=== PATIENT | male | born 1990 | race Caucasian/White ===

== ENCOUNTER 2023-08-26 03:09 | Inpatient (IN) | payer MEDICAID ==
[~2023-08-26] VITALS: Ht 185.4 cm; Wt 138.3 kg
[2023-08-26] VITALS (17 sets, daily range): BP systolic 92–135; PULSE 126–143; RESP 13–32; TEMP 97.7–99.2; O2SAT 92–98
[2023-08-26] MEDS ORDERED: cefTRIAXone 1 GM VIAL ONE (03:43)
[2023-08-26] MEDS ORDERED: PANTOPRAZOLE SODIUM 40 MG/VIAL (PROTONIX) ONE (03:44)
[2023-08-26] MEDS ORDERED: ONDANSETRON HCL 4 MG/2 ML VIAL IVP ONE (03:45)
[2023-08-26] MEDS ORDERED: PANTOPRAZOLE SODIUM 80 MG in NS 100 ML IV ONE (03:45)
[2023-08-26] MEDS ORDERED: MORPHINE 4 MG INJ. 4 MG/ML VIAL IVP ONE (03:45)
[2023-08-26] MEDS ORDERED: cefTRIAXone 1 GM in D5W 50 ML IV ONE (03:45)
[2023-08-26] MEDS ORDERED: OCTREOTIDE ACETATE 50 MCG/ML AMP IVP ONE (04:15)
[2023-08-26] MEDS ORDERED: THIAMINE HCL 100 MG in NS 50 ML IV ONE (04:15)
[2023-08-26] MEDS ORDERED: OCTREOTIDE ACETATE 1,250 MCG in NS 248.75 ML IV ONE (04:15)
[2023-08-26] MEDS ORDERED: THIAMINE HCL 100 MG/ML VIAL ONE (04:59)
[2023-08-26 05:11] LABS: BASOPHILS # (AUTO) 0.1 K/uL (0.0-0.2); EOSINOPHILS # (AUTO) 0.2 K/uL (0.0-0.4)
[2023-08-26 05:19] LABS: BASOPHILS % (AUTO) 0.5 % (0.0-2.0); LYMPHOCYTES # (AUTO) 3.1 K/uL (1.0-5.5); LYMPHOCYTES % (AUTO) 18.8 % (20.5-51.5); MEAN CORPUSCULAR HEMOGLOBIN 30 pg (27-31); MEAN CORPUSCULAR HGB CONC 32 % (32-36); MEAN CORPUSCULAR VOLUME 93 fL (79.0-98.0); MONOCYTES # (AUTO) 2.4 K/uL (0.0-1.0); MONOCYTES % (AUTO) 14.5 % (1.7-9.3); NEUTROPHILS # (AUTO) 10.8 K/uL (1.8-7.7); NEUTROPHILS % (AUTO) 65.2 % (40.0-70.0); PLATELET COUNT (AUTO) 125 K/uL (130-430); RED CELL DISTRIBUTION WIDTH 21.7 % (9.0-15.0); WHITE BLOOD COUNT (AUTO) 16.6 K/uL (4.8-10.8)
[2023-08-26 05:23] LABS: HEMATOCRIT 13.9 % (36-54); HEMOGLOBIN 4.5 g/dL (14.0-18.0)
[2023-08-26 05:24] LABS: INR 3.1 (0.80-1.20); PROTHROMBIN TIME 30.2 SECS (9.5-12.5)
[2023-08-26 05:30] LABS: ANION GAP 7 (5-15); CALCIUM 7.1 mg/dL (8.4-11.0); CARBON DIOXIDE 23 mmol/L (23-29); CHLORIDE 102 mmol/L (98-107); CREATININE 1.26 mg/dL (0.55-1.30); GFR AFRICAN AMERICAN 85 mL/min (>90); GLUCOSE 107 mg/dL (74-106); POTASSIUM 4.3 mmol/L (3.5-5.1); SODIUM SERUM 132 mmol/L (136-145); UREA NITROGEN, BLOOD 20 mg/dL (8-21)
[2023-08-26] MEDS ORDERED: MORPHINE 2 MG/ML INJ. SYRINGE IVP ONE (05:30)
[2023-08-26 05:36] LABS: ALANINE AMINOTRANSFERASE 25 U/L (12-78); ALBUMIN 0.9 g/dL (3.4-4.8); ASPARTATE AMINOTRANSFERASE 102 U/L (10-37); BILIRUBIN,DIRECT 4.2 mg/dL (0.0-0.3); LIPASE 45 U/L (16-77); PHOSPHORUS 3.3 mg/dL (2.7-4.5); TOTAL BILIRUBIN 5.9 mg/dL (0.0-1.0); TOTAL PROTEIN, SERUM 4.7 g/dL (6.4-8.3)
[2023-08-26] MEDS ORDERED: D5/0.45 NS 1,000 ML IV ONE (05:45)
[2023-08-26 05:58] LABS: ALCOHOL, BLOOD < 3 mg/dL (<10); GFR NON AFRICAN-AMERICAN 70 mL/min (>90)
[2023-08-26] MEDS ORDERED: METOCLOPRAMIDE HCL 10 MG/2 ML VIAL IVP PRN (06:15)
[2023-08-26] MEDS ORDERED: PHYTONADIONE 10 MG in NS 50 ML IV ONE (06:15)
[2023-08-26] MEDS ORDERED: MAGNESIUM SULFATE 4 GM in D5W 250 ML IV ONE (06:30)
[2023-08-26] MEDS: PANTOPRAZOLE SODIUM 40 MG in NS 50 ML IV SCH ×4 (09:13→21:31)
[2023-08-26] MEDS ORDERED: MIDAZOLAM HCL 5 MG/5 ML VIAL ONE (11:23)
[2023-08-26] MEDS ORDERED: DIPHENHYDRAMINE INJ 50 MG/ML VIAL ONE (11:24)
[2023-08-26] MEDS ORDERED: MEPERIDINE 100 MG INJ. 100 MG/ML VIAL ONE ×2 (11:24→16:47)
[2023-08-26] MEDS ORDERED: SIMETHICONE 40 MG/0.6 ML ML ONE (15:01)
[2023-08-26] MEDS ORDERED: LORazepam 2 MG/ML VIAL IVP PRN (17:30)
[2023-08-26] MEDS: OCTREOTIDE ACETATE 1,250 MCG in NS 248.75 ML IV SCH (18:00)
[2023-08-26] MEDS: METOCLOPRAMIDE HCL 10 MG/2 ML VIAL IVP SCH (18:32)
[2023-08-26] MEDS ORDERED: cefTRIAXone 1 GM in D5W 50 ML IV SCH (21:00)
[2023-08-26 21:25] LABS: MEAN CORPUSCULAR HEMOGLOBIN 31 pg (27-31); MEAN CORPUSCULAR HGB CONC 33 % (32-36); MEAN CORPUSCULAR VOLUME 95 fL (79.0-98.0); PLATELET COUNT (AUTO) 145 K/uL (130-430); RED BLOOD CELL COUNT(AUTO) 2.23 MIL/uL (4.2-6.2); RED CELL DISTRIBUTION WIDTH 17.8 % (9.0-15.0); WHITE BLOOD COUNT (AUTO) 22.3 K/uL (4.8-10.8)
[2023-08-26 21:38] LABS: ALBUMIN 1.2 g/dL (3.4-4.8); CALCIUM 7.7 mg/dL (8.4-11.0); CREATININE 1.94 mg/dL (0.55-1.30); TOTAL PROTEIN, SERUM 5.1 g/dL (6.4-8.3)
[2023-08-26 21:54] LABS: HEMATOCRIT 21.1 % (36-54)
[2023-08-26 21:59] LABS: POTASSIUM 6.5 mmol/L (3.5-5.1)
[2023-08-26 22:11] LABS: INR 2.6 (0.80-1.20); PROTHROMBIN TIME 25.7 SECS (9.5-12.5)
[2023-08-26 22:22] LABS: BAND % (MANUAL) 8 % (0-6)
[2023-08-26 22:23] LABS: BASOPHILS % (MANUAL) 0 % (0-2); EOSINOPHILS % (MANUAL) 0 % (0-7); LYMPHOCYTES % (MANUAL) 6 % (20-46); MONOCYTES % (MANUAL) 9 % (0-11); PLATELET ESTIMATE ADEQUATE (ADEQUATE)
[2023-08-26 22:24] LABS: ANISOCYTOSIS 1+; OVALOCYTES FEW; POLYCHROMASIA 2+
[2023-08-27] VITALS (24 sets, daily range): BP systolic 105–159; PULSE 72–133; RESP 14–39; TEMP 97.2–99.7; O2SAT 90–100
[2023-08-27] MEDS: METOCLOPRAMIDE HCL 10 MG/2 ML VIAL IVP SCH ×5 (00:04→23:34)
[2023-08-27] MEDS: METOPROLOL TARTRATE 5 MG/5 ML VIAL IVP PRN ×3 (00:06→13:56)
[2023-08-27] MEDS: PANTOPRAZOLE SODIUM 40 MG in NS 50 ML IV SCH ×5 (03:29→23:34)
[2023-08-27] MEDS: LORazepam 2 MG/ML VIAL IVP PRN ×4 (06:01→15:28)
[2023-08-27 06:14] LABS: BASOPHILS # (AUTO) 0.1 K/uL (0.0-0.2); BASOPHILS % (AUTO) 0.5 % (0.0-2.0); EOSINOPHILS # (AUTO) 0.1 K/uL (0.0-0.4); EOSINOPHILS % (AUTO) 0.3 % (0.0-4.0); HEMOGLOBIN 7.2 g/dL (14.0-18.0); LYMPHOCYTES # (AUTO) 2.6 K/uL (1.0-5.5); LYMPHOCYTES % (AUTO) 12.8 % (20.5-51.5); MEAN CORPUSCULAR HEMOGLOBIN 31 pg (27-31); MEAN CORPUSCULAR HGB CONC 33 % (32-36); MEAN CORPUSCULAR VOLUME 94 fL (79.0-98.0); MONOCYTES # (AUTO) 2.4 K/uL (0.0-1.0); NEUTROPHILS # (AUTO) 14.9 K/uL (1.8-7.7); NEUTROPHILS % (AUTO) 74.4 % (40.0-70.0); PLATELET COUNT (AUTO) 137 K/uL (130-430); RED BLOOD CELL COUNT(AUTO) 2.32 MIL/uL (4.2-6.2); RED CELL DISTRIBUTION WIDTH 16.8 % (9.0-15.0)
[2023-08-27 06:18] LABS: INR 2.6 (0.80-1.20)
[2023-08-27 06:22] LABS: HEMATOCRIT 21.8 % (36-54)
[2023-08-27 06:26] LABS: ALBUMIN 1.2 g/dL (3.4-4.8); CALCIUM 7.7 mg/dL (8.4-11.0); CREATININE 1.85 mg/dL (0.55-1.30); TOTAL BILIRUBIN 12.3 mg/dL (0.0-1.0); TOTAL PROTEIN, SERUM 5.1 g/dL (6.4-8.3)
[2023-08-27 06:31] LABS: POTASSIUM 6.1 mmol/L (3.5-5.1)
[2023-08-27] MEDS: PIPERACILLIN/TAZO 3.375/DEX-IS 50 ML IV SCH ×4 (08:12→23:34)
[2023-08-27] MEDS ORDERED: SODIUM POLYSTYRENE SULFONATE 15 GM/60 ML UDBTL RC ONE (12:15)
[2023-08-27] MEDS ORDERED: FUROSEMIDE 40 MG/4 ML VIAL IVP ONE (15:45)
[2023-08-27] MEDS ORDERED: FOLIC ACID 1 MG, THIAMINE HCL 100 MG, MAGNESIUM SULFATE 1 GM, MVI 10 ML in NACL 0.9% 1,... IV SCH (15:45)
[2023-08-27] MEDS ORDERED: LORazepam 2 MG/ML VIAL ONE (16:22)
[2023-08-27 16:26] LABS: CALCIUM 7.7 mg/dL (8.4-11.0); CREATININE 1.86 mg/dL (0.55-1.30); POTASSIUM 5.6 mmol/L (3.5-5.1)
[2023-08-27] MEDS ORDERED: LORazepam 2 MG/ML VIAL IVP ONE (16:30)
[2023-08-27] MEDS: OCTREOTIDE ACETATE 1,250 MCG in NS 248.75 ML IV SCH (18:10)
[2023-08-27] MEDS: FOLIC ACID 1 MG, MVI 10 ML in NACL 0.9% 1,000 ML IV SCH (18:16)
[2023-08-27] MEDS: THIAMINE HCL 100 MG, MAGNESIUM SULFATE 1 GM in NS 100 ML IV SCH (18:17)
[2023-08-27] MEDS: VANCOMYCIN HCL 1,000 MG in NS 250 ML IV SCH (20:37)
[2023-08-28] VITALS (33 sets, daily range): BP systolic 87–148; PULSE 89–125; RESP 16–35; TEMP 97.8–98.9; O2SAT 88–99
[2023-08-28] MEDS: PANTOPRAZOLE SODIUM 40 MG in NS 50 ML IV SCH ×5 (04:16→23:34)
[2023-08-28 05:12] LABS: ERYTHROCYTE SEDIMENTATION RATE < 1 MM/HR (0-15)
[2023-08-28 05:19] LABS: BASOPHILS % (AUTO) 0.4 % (0.0-2.0); EOSINOPHILS % (AUTO) 0.3 % (0.0-4.0); LYMPHOCYTES % (AUTO) 9.1 % (20.5-51.5); MEAN CORPUSCULAR HEMOGLOBIN 33 pg (27-31); MEAN CORPUSCULAR HGB CONC 34 % (32-36); MEAN CORPUSCULAR VOLUME 97 fL (79.0-98.0); MONOCYTES % (AUTO) 9.6 % (1.7-9.3); NEUTROPHILS # (AUTO) 8.8 K/uL (1.8-7.7); NEUTROPHILS % (AUTO) 80.6 % (40.0-70.0); PLATELET COUNT (AUTO) 67 K/uL (130-430); RED CELL DISTRIBUTION WIDTH 17.3 % (9.0-15.0); WHITE BLOOD COUNT (AUTO) 10.9 K/uL (4.8-10.8)
[2023-08-28] MEDS: PIPERACILLIN/TAZO 3.375/DEX-IS 50 ML IV SCH ×4 (05:32→23:34)
[2023-08-28] MEDS: METOCLOPRAMIDE HCL 10 MG/2 ML VIAL IVP SCH ×4 (05:32→23:34)
[2023-08-28 05:34] LABS: HEMATOCRIT 17.4 % (36-54); HEMOGLOBIN 5.9 g/dL (14.0-18.0)
[2023-08-28 05:48] LABS: ALBUMIN 0.9 g/dL (3.4-4.8); CALCIUM 7.4 mg/dL (8.4-11.0); CREATININE 2.23 mg/dL (0.55-1.30); PHOSPHORUS 5.8 mg/dL (2.7-4.5); POTASSIUM 5.4 mmol/L (3.5-5.1); TOTAL BILIRUBIN 11.5 mg/dL (0.0-1.0); TOTAL PROTEIN, SERUM 4.7 g/dL (6.4-8.3)
[2023-08-28 08:06] LABS: AFP, TUMOR MARKER <1.8 ng/mL (0.0-6.9); HEPATITIS A AB, IgM Negative (Negative); HEPATITIS B CORE AB, IgM Negative (Negative); HEPATITIS B SURFACE AG Negative (Negative); HEPATITIS C VIRUS AB Non Reactive (Non Reactive)
[2023-08-28] MEDS: LORazepam 2 MG/ML VIAL IVP PRN ×5 (08:42→18:43)
[2023-08-28] MEDS ORDERED: FUROSEMIDE 100 MG/10 ML VIAL IV ONE (09:00)
[2023-08-28] MEDS ORDERED: FUROSEMIDE 40 MG/4 ML VIAL ONE (09:16)
[2023-08-28] MEDS ORDERED: FUROSEMIDE 20 MG/2 ML VIAL ONE (09:17)
[2023-08-28] MEDS: VANCOMYCIN HCL 1,000 MG in NS 250 ML IV SCH ×2 (09:18→20:40)
[2023-08-28] MEDS: IPRATROPIUM/ALBUTEROL SULFATE 3 ML AMPUL.NEB (DUONEB) INH PRN (09:51)
[2023-08-28] MEDS ORDERED: SODIUM POLYSTYRENE SULFONATE 15 GM/60 ML UDBTL RC ONE (10:00)
[2023-08-28] MEDS: PROPOFOL DRIP 100 ML IV PRN ×2 (16:47→20:32)
[2023-08-28] MEDS: THIAMINE HCL 100 MG, MAGNESIUM SULFATE 1 GM in NS 100 ML IV SCH (16:52)
[2023-08-28] MEDS: FOLIC ACID 1 MG, MVI 10 ML in NACL 0.9% 1,000 ML IV SCH (16:52)
[2023-08-28] MEDS: OCTREOTIDE ACETATE 1,250 MCG in NS 248.75 ML IV SCH (17:28)
[2023-08-28 17:57] LABS: ABG O2 SAT% ESTIMATE 98.4 % (94.0-100.0); ALLEN'S TEST POSITIVE (P); BLOOD GAS HCO3 20.5 mmol/L (21.0-27.0); BLOOD GAS PCO2 35.7 mmHg (32.0-45.0); BLOOD GAS PH 7.376 (7.350-7.450); BLOOD GAS PO2 123.7 mmHg (75.0-100.0)
[2023-08-28] MEDS ORDERED: ALBUMIN HUMAN 25% 200 ML IV ONE (19:03)
[2023-08-28 19:22] LABS: HEMOGLOBIN 7.2 g/dL (14.0-18.0)
[2023-08-28] MEDS ORDERED: NOREPINEPHRINE 4 MG/4 ML VIAL IV ONE (19:34)
[2023-08-28 19:44] LABS: HEMATOCRIT 21.7 % (36-54)
[2023-08-28] MEDS: ALBUMIN HUMAN 25% 100 ML IV SCH ×2 (19:56→20:00)
[2023-08-28] MEDS: NOREPINEPHRINE BITARTRATE 4 MG in D5W 246 ML IV PRN (20:27)
[2023-08-29] VITALS (36 sets, daily range): BP systolic 110–145; PULSE 102–117; RESP 21–30; TEMP 98–99.4; O2SAT 94–100
[2023-08-29] MEDS: PROPOFOL DRIP 100 ML IV PRN ×5 (01:48→23:57)
[2023-08-29] MEDS: PANTOPRAZOLE SODIUM 40 MG in NS 50 ML IV SCH ×4 (05:29→20:20)
[2023-08-29] MEDS: PIPERACILLIN/TAZO 3.375/DEX-IS 50 ML IV SCH ×4 (05:30→23:06)
[2023-08-29] MEDS: METOCLOPRAMIDE HCL 10 MG/2 ML VIAL IVP SCH ×4 (05:30→23:06)
[2023-08-29 06:29] LABS: BASOPHILS % (AUTO) 0.3 % (0.0-2.0); EOSINOPHILS # (AUTO) 0.1 K/uL (0.0-0.4); EOSINOPHILS % (AUTO) 0.9 % (0.0-4.0); LYMPHOCYTES # (AUTO) 1.2 K/uL (1.0-5.5); LYMPHOCYTES % (AUTO) 8.7 % (20.5-51.5); MEAN CORPUSCULAR HEMOGLOBIN 31 pg (27-31); MEAN CORPUSCULAR HGB CONC 33 % (32-36); MEAN CORPUSCULAR VOLUME 94 fL (79.0-98.0); MONOCYTES % (AUTO) 7.5 % (1.7-9.3); NEUTROPHILS # (AUTO) 11.1 K/uL (1.8-7.7); NEUTROPHILS % (AUTO) 82.6 % (40.0-70.0); RED BLOOD CELL COUNT(AUTO) 2.14 MIL/uL (4.2-6.2); RED CELL DISTRIBUTION WIDTH 20.6 % (9.0-15.0); WHITE BLOOD COUNT (AUTO) 13.5 K/uL (4.8-10.8)
[2023-08-29 06:36] LABS: HEMATOCRIT 20.1 % (36-54); HEMOGLOBIN 6.7 g/dL (14.0-18.0)
[2023-08-29 06:37] LABS: PLATELET COUNT (AUTO) 39 K/uL (130-430)
[2023-08-29 06:41] LABS: ALBUMIN 1.5 g/dL (3.4-4.8); CREATININE 2.27 mg/dL (0.55-1.30); PHOSPHORUS 5.1 mg/dL (2.7-4.5); POTASSIUM 4.1 mmol/L (3.5-5.1); TOTAL PROTEIN, SERUM 5.4 g/dL (6.4-8.3)
[2023-08-29 06:51] LABS: CALCIUM 6.8 mg/dL (8.4-11.0); TOTAL BILIRUBIN 16.3 mg/dL (0.0-1.0)
[2023-08-29] MEDS: NOREPINEPHRINE BITARTRATE 4 MG in D5W 246 ML IV PRN (06:55)
[2023-08-29 07:25] LABS: ERYTHROCYTE SEDIMENTATION RATE 6 MM/HR (0-15)
[2023-08-29] MEDS: VANCOMYCIN HCL 1,000 MG in NS 250 ML IV SCH ×2 (08:45→20:51)
[2023-08-29] MEDS ORDERED: ROCURONIUM BROMIDE 10 MG/ML (ZEMURON) IV ONE (10:50)
[2023-08-29] MEDS ORDERED: ETOMIDATE 20 MG/ 10 ML VIAL (AMIDATE) IVP ONE (10:50)
[2023-08-29] MEDS ORDERED: NOREPINEPHRINE 4 MG/4 ML VIAL IV ONE ×2 (12:24→12:25)
[2023-08-29] MEDS: NOREPINEPHRINE BITARTRATE 16 MG in D5W 234 ML IV PRN (12:37)
[2023-08-29] MEDS: THIAMINE HCL 100 MG, MAGNESIUM SULFATE 1 GM in NS 100 ML IV SCH (18:10)
[2023-08-29] MEDS: OCTREOTIDE ACETATE 1,250 MCG in NS 248.75 ML IV SCH (18:10)
[2023-08-29] MEDS: FOLIC ACID 1 MG, MVI 10 ML in NACL 0.9% 1,000 ML IV SCH (18:11)
[2023-08-29] MEDS: FUROSEMIDE 40 MG/4 ML VIAL IVP SCH (20:51)
[2023-08-30] VITALS (33 sets, daily range): BP systolic 105–124; PULSE 95–106; RESP 19–25; TEMP 98.3–101; O2SAT 93–98
[2023-08-30] MEDS: METOCLOPRAMIDE HCL 10 MG/2 ML VIAL IVP SCH ×4 (05:17→23:33)
[2023-08-30] MEDS: PANTOPRAZOLE SODIUM 40 MG in NS 50 ML IV SCH ×6 (05:18→20:42)
[2023-08-30] MEDS: PIPERACILLIN/TAZO 3.375/DEX-IS 50 ML IV SCH ×4 (05:18→23:33)
[2023-08-30 06:40] LABS: CALCIUM 7.1 mg/dL (8.4-11.0); CREATININE 2.11 mg/dL (0.55-1.30); PHOSPHORUS 4.8 mg/dL (2.7-4.5); POTASSIUM 4.1 mmol/L (3.5-5.1)
[2023-08-30 07:17] LABS: BASOPHILS % (AUTO) 0.2 % (0.0-2.0); EOSINOPHILS % (AUTO) 0.2 % (0.0-4.0); HEMATOCRIT 24.2 % (36-54); HEMOGLOBIN 7.8 g/dL (14.0-18.0); LYMPHOCYTES # (AUTO) 1.2 K/uL (1.0-5.5); LYMPHOCYTES % (AUTO) 6.2 % (20.5-51.5); MEAN CORPUSCULAR HEMOGLOBIN 31 pg (27-31); MEAN CORPUSCULAR HGB CONC 32 % (32-36); MEAN CORPUSCULAR VOLUME 95 fL (79.0-98.0); MONOCYTES # (AUTO) 1.8 K/uL (0.0-1.0); MONOCYTES % (AUTO) 8.8 % (1.7-9.3); RED BLOOD CELL COUNT(AUTO) 2.56 MIL/uL (4.2-6.2); RED CELL DISTRIBUTION WIDTH 20.7 % (9.0-15.0); WHITE BLOOD COUNT (AUTO) 20.1 K/uL (4.8-10.8)
[2023-08-30 07:48] LABS: PLATELET COUNT (AUTO) 44 K/uL (130-430)
[2023-08-30 07:54] LABS: ERYTHROCYTE SEDIMENTATION RATE 28 MM/HR (0-15)
[2023-08-30] MEDS ORDERED: NOREPINEPHRINE 4 MG/4 ML VIAL IV ONE (07:55)
[2023-08-30] MEDS: NOREPINEPHRINE BITARTRATE 16 MG in D5W 234 ML IV PRN ×2 (08:34→23:01)
[2023-08-30] MEDS: PROPOFOL DRIP 100 ML IV PRN ×3 (08:37→20:07)
[2023-08-30] MEDS: FUROSEMIDE 40 MG/4 ML VIAL IVP SCH ×2 (08:37→20:49)
[2023-08-30] MEDS: VANCOMYCIN HCL 1,000 MG in NS 250 ML IV SCH ×2 (08:40→20:50)
[2023-08-30 11:16] LABS: NEUTROPHILS % (AUTO) 84.6 % (40.0-70.0)
[2023-08-30 11:17] LABS: ANISOCYTOSIS 1+; POLYCHROMASIA SLIGHT
[2023-08-30] MEDS: THIAMINE HCL 100 MG, MAGNESIUM SULFATE 1 GM in NS 100 ML IV SCH ×2 (11:45→17:37)
[2023-08-30] MEDS ORDERED: ACETAMINOPHEN I.V. 1000 MG 100 ML IV ONE (11:45)
[2023-08-30] MEDS ORDERED: ACETAMINOPHEN 325 MG TABLET PO ONE (11:45)
[2023-08-30] MEDS: OCTREOTIDE ACETATE 1,250 MCG in NS 248.75 ML IV SCH (14:56)
[2023-08-30] MEDS ORDERED: *TPN PER PHARMACY XX PRN (16:00)
[2023-08-30] MEDS ORDERED: DEXTROSE 50% JECT 50 ML DISP.SYRIN IVP PRN (16:00)
[2023-08-30] MEDS: FOLIC ACID 1 MG, MVI 10 ML in NACL 0.9% 1,000 ML IV SCH (17:37)
[2023-08-30] MEDS ORDERED: FUROSEMIDE 40 MG/4 ML VIAL IVP SCH (21:00)
[2023-08-31] VITALS (37 sets, daily range): BP systolic 109–142; PULSE 90–101; RESP 19–26; TEMP 97.8–99.8; O2SAT 93–99
[2023-08-31] MEDS: PROPOFOL DRIP 100 ML IV PRN ×3 (00:32→18:09)
[2023-08-31] MEDS: PIPERACILLIN/TAZO 3.375/DEX-IS 50 ML IV SCH ×3 (06:12→17:46)
[2023-08-31] MEDS: METOCLOPRAMIDE HCL 10 MG/2 ML VIAL IVP SCH ×3 (06:12→17:47)
[2023-08-31 07:01] LABS: INR 2.7 (0.80-1.20); PROTHROMBIN TIME 26.3 SECS (9.5-12.5)
[2023-08-31 07:06] LABS: BASOPHILS # (AUTO) 0.1 K/uL (0.0-0.2); BASOPHILS % (AUTO) 0.6 % (0.0-2.0); EOSINOPHILS # (AUTO) 0.2 K/uL (0.0-0.4); EOSINOPHILS % (AUTO) 1.1 % (0.0-4.0); HEMATOCRIT 24.2 % (36-54); HEMOGLOBIN 7.8 g/dL (14.0-18.0); LYMPHOCYTES # (AUTO) 1.4 K/uL (1.0-5.5); LYMPHOCYTES % (AUTO) 7.4 % (20.5-51.5); MEAN CORPUSCULAR HEMOGLOBIN 31 pg (27-31); MEAN CORPUSCULAR HGB CONC 32 % (32-36); MEAN CORPUSCULAR VOLUME 95 fL (79.0-98.0); MONOCYTES # (AUTO) 2.1 K/uL (0.0-1.0); MONOCYTES % (AUTO) 10.7 % (1.7-9.3); NEUTROPHILS # (AUTO) 15.4 K/uL (1.8-7.7); NEUTROPHILS % (AUTO) 80.2 % (40.0-70.0); PLATELET COUNT (AUTO) 79 K/uL (130-430); RED BLOOD CELL COUNT(AUTO) 2.55 MIL/uL (4.2-6.2); RED CELL DISTRIBUTION WIDTH 21.6 % (9.0-15.0); WHITE BLOOD COUNT (AUTO) 19.2 K/uL (4.8-10.8)
[2023-08-31 07:32] LABS: ERYTHROCYTE SEDIMENTATION RATE 38 MM/HR (0-15)
[2023-08-31 07:49] LABS: ALBUMIN 1.4 g/dL (3.4-4.8); CREATININE 2.61 mg/dL (0.55-1.30); PHOSPHORUS 5.4 mg/dL (2.7-4.5); POTASSIUM 3.9 mmol/L (3.5-5.1); TOTAL PROTEIN, SERUM 6.3 g/dL (6.4-8.3)
[2023-08-31 09:16] LABS: TOTAL BILIRUBIN 17.7 mg/dL (0.0-1.0)
[2023-08-31] MEDS: PANTOPRAZOLE SODIUM 40 MG/VIAL (PROTONIX) IVP SCH (09:35)
[2023-08-31] MEDS: FUROSEMIDE 40 MG/4 ML VIAL IVP SCH ×2 (09:36→21:37)
[2023-08-31] MEDS: VANCOMYCIN HCL 1,000 MG in NS 250 ML IV SCH ×2 (09:38→21:38)
[2023-08-31] MEDS: THIAMINE HCL 100 MG, MAGNESIUM SULFATE 1 GM in NS 100 ML IV SCH (17:46)
[2023-08-31] MEDS: FOLIC ACID 1 MG, MVI 10 ML in NACL 0.9% 1,000 ML IV SCH (17:47)
[2023-08-31] MEDS: OCTREOTIDE ACETATE 1,250 MCG in NS 248.75 ML IV SCH (17:47)
[2023-08-31] MEDS: NOREPINEPHRINE BITARTRATE 16 MG in D5W 234 ML IV PRN (18:12)
[2023-08-31] MEDS ORDERED: TPN CENTRAL IV SCH ×4 (21:00)
[2023-08-31] MEDS ORDERED: SODIUM CHLORIDE IV SCH ×4 (21:00)
[2023-08-31] MEDS ORDERED: [UNRECOGNIZED DRUG - OTHER] IV SCH ×4 (21:00)
[2023-08-31] MEDS: FAT EMULSIONS 250 ML IV SCH (21:38)
[2023-08-31] MEDS: LACTULOSE 20 GM/30 ML UDC RC SCH (21:39)
[2023-09-01] VITALS (34 sets, daily range): BP systolic 98–134; PULSE 81–119; RESP 17–29; TEMP 97.2–99.8; O2SAT 91–97
[2023-09-01] MEDS ORDERED: NOREPINEPHRINE 4 MG/4 ML VIAL IV ONE (00:04)
[2023-09-01] MEDS: PIPERACILLIN/TAZO 3.375/DEX-IS 50 ML IV SCH ×5 (00:05→23:36)
[2023-09-01] MEDS: PROPOFOL DRIP 100 ML IV PRN ×2 (00:07→06:42)
[2023-09-01] MEDS: NOREPINEPHRINE BITARTRATE 16 MG in D5W 234 ML IV PRN (00:08)
[2023-09-01] MEDS: METOCLOPRAMIDE HCL 10 MG/2 ML VIAL IVP SCH ×5 (00:08→23:36)
[2023-09-01] MEDS ORDERED: METOCLOPRAMIDE HCL 10 MG/2 ML VIAL ONE (05:53)
[2023-09-01 05:57] LABS: ERYTHROCYTE SEDIMENTATION RATE 38 MM/HR (0-15)
[2023-09-01 06:08] LABS: BASOPHILS # (AUTO) 0.1 K/uL (0.0-0.2); BASOPHILS % (AUTO) 0.5 % (0.0-2.0); EOSINOPHILS # (AUTO) 0.3 K/uL (0.0-0.4); EOSINOPHILS % (AUTO) 1.8 % (0.0-4.0); HEMATOCRIT 23.3 % (36-54); HEMOGLOBIN 7.7 g/dL (14.0-18.0); LYMPHOCYTES # (AUTO) 1.1 K/uL (1.0-5.5); LYMPHOCYTES % (AUTO) 6.4 % (20.5-51.5); MEAN CORPUSCULAR HEMOGLOBIN 31 pg (27-31); MEAN CORPUSCULAR HGB CONC 33 % (32-36); MEAN CORPUSCULAR VOLUME 94 fL (79.0-98.0); MONOCYTES % (AUTO) 11.4 % (1.7-9.3); NEUTROPHILS # (AUTO) 14.1 K/uL (1.8-7.7); NEUTROPHILS % (AUTO) 79.9 % (40.0-70.0); PLATELET COUNT (AUTO) 81 K/uL (130-430); RED BLOOD CELL COUNT(AUTO) 2.47 MIL/uL (4.2-6.2); RED CELL DISTRIBUTION WIDTH 23.3 % (9.0-15.0); WHITE BLOOD COUNT (AUTO) 17.7 K/uL (4.8-10.8)
[2023-09-01 06:26] LABS: CALCIUM 8.1 mg/dL (8.4-11.0); CREATININE 2.66 mg/dL (0.55-1.30); PHOSPHORUS 5.6 mg/dL (2.7-4.5); POTASSIUM 3.6 mmol/L (3.5-5.1)
[2023-09-01] MEDS: LACTULOSE 20 GM/30 ML UDC RC SCH ×2 (09:00→20:36)
[2023-09-01] MEDS: PANTOPRAZOLE SODIUM 40 MG/VIAL (PROTONIX) IVP SCH (11:04)
[2023-09-01] MEDS: VANCOMYCIN HCL 1,000 MG in NS 250 ML IV SCH ×2 (11:11→20:37)
[2023-09-01] MEDS: FUROSEMIDE 40 MG/4 ML VIAL IVP SCH ×2 (11:19→20:33)
[2023-09-01] MEDS: IPRATROPIUM/ALBUTEROL SULFATE 3 ML AMPUL.NEB (DUONEB) INH PRN (14:49)
[2023-09-01] MEDS: LORazepam 2 MG/ML VIAL IVP PRN ×4 (17:34→23:59)
[2023-09-01] MEDS: FOLIC ACID 1 MG, MVI 10 ML in NACL 0.9% 1,000 ML IV SCH (17:36)
[2023-09-01] MEDS: THIAMINE HCL 100 MG, MAGNESIUM SULFATE 1 GM in NS 100 ML IV SCH (17:36)
[2023-09-01] MEDS: OCTREOTIDE ACETATE 1,250 MCG in NS 248.75 ML IV SCH (17:37)
[2023-09-01] MEDS: IPRATROPIUM/ALBUTEROL SULFATE 3 ML AMPUL.NEB (DUONEB) INH SCH ×2 (19:28→23:19)
[2023-09-01] MEDS: FAT EMULSIONS 250 ML IV SCH (20:36)
[2023-09-01] MEDS ORDERED: POTASSIUM CHLORIDE IV SCH ×6 (21:00)
[2023-09-01] MEDS ORDERED: TPN CENTRAL IV SCH ×6 (21:00)
[2023-09-01] MEDS ORDERED: [UNRECOGNIZED DRUG - OTHER] IV SCH ×6 (21:00)
[2023-09-01] MEDS ORDERED: SODIUM CHLORIDE IV SCH ×6 (21:00)
[2023-09-02] VITALS (30 sets, daily range): BP systolic 103–136; PULSE 81–108; RESP 18–42; TEMP 98–99.1; O2SAT 92–99
[2023-09-02] MEDS: LORazepam 2 MG/ML VIAL IVP PRN (02:57)
[2023-09-02] MEDS: IPRATROPIUM/ALBUTEROL SULFATE 3 ML AMPUL.NEB (DUONEB) INH SCH ×6 (03:49→23:15)
[2023-09-02 05:15] LABS: BASOPHILS # (AUTO) 0.1 K/uL (0.0-0.2); BASOPHILS % (AUTO) 0.4 % (0.0-2.0); EOSINOPHILS # (AUTO) 0.1 K/uL (0.0-0.4); EOSINOPHILS % (AUTO) 0.9 % (0.0-4.0); LYMPHOCYTES # (AUTO) 1.2 K/uL (1.0-5.5); LYMPHOCYTES % (AUTO) 8.1 % (20.5-51.5); MEAN CORPUSCULAR HEMOGLOBIN 31 pg (27-31); MEAN CORPUSCULAR HGB CONC 33 % (32-36); MEAN CORPUSCULAR VOLUME 95 fL (79.0-98.0); MONOCYTES # (AUTO) 2.2 K/uL (0.0-1.0); MONOCYTES % (AUTO) 15.2 % (1.7-9.3); NEUTROPHILS # (AUTO) 11.1 K/uL (1.8-7.7); NEUTROPHILS % (AUTO) 75.4 % (40.0-70.0); PLATELET COUNT (AUTO) 90 K/uL (130-430); RED BLOOD CELL COUNT(AUTO) 2.21 MIL/uL (4.2-6.2); RED CELL DISTRIBUTION WIDTH 23.7 % (9.0-15.0); WHITE BLOOD COUNT (AUTO) 14.8 K/uL (4.8-10.8)
[2023-09-02] MEDS: METOCLOPRAMIDE HCL 10 MG/2 ML VIAL IVP SCH ×4 (05:56→23:29)
[2023-09-02] MEDS ORDERED: METOCLOPRAMIDE HCL 10 MG/2 ML VIAL ONE (05:56)
[2023-09-02] MEDS: PIPERACILLIN/TAZO 3.375/DEX-IS 50 ML IV SCH ×2 (05:59→12:05)
[2023-09-02 06:01] LABS: ALBUMIN 1.2 g/dL (3.4-4.8); PHOSPHORUS 4.1 mg/dL (2.7-4.5)
[2023-09-02 06:08] LABS: HEMOGLOBIN 6.9 g/dL (14.0-18.0)
[2023-09-02 06:36] LABS: ERYTHROCYTE SEDIMENTATION RATE 31 MM/HR (0-15)
[2023-09-02 08:20] LABS: CREATININE 3.1 mg/dL (0.55-1.30); POTASSIUM 3.2 mmol/L (3.5-5.1); TOTAL PROTEIN, SERUM 6.2 g/dL (6.4-8.3)
[2023-09-02] MEDS: LACTULOSE 20 GM/30 ML UDC RC SCH ×2 (08:26→20:45)
[2023-09-02] MEDS: PANTOPRAZOLE SODIUM 40 MG/VIAL (PROTONIX) IVP SCH (08:26)
[2023-09-02] MEDS: FUROSEMIDE 40 MG/4 ML VIAL IVP SCH ×2 (08:28→20:46)
[2023-09-02] MEDS: VANCOMYCIN HCL 1,000 MG in NS 250 ML IV SCH (08:29)
[2023-09-02 08:35] LABS: CALCIUM 6.9 mg/dL (8.4-11.0)
[2023-09-02] MEDS: NOREPINEPHRINE BITARTRATE 16 MG in D5W 234 ML IV PRN (16:21)
[2023-09-02] MEDS: FAT EMULSIONS 250 ML IV SCH (16:22)
[2023-09-02] MEDS: FOLIC ACID 1 MG, MVI 10 ML in NACL 0.9% 1,000 ML IV SCH (16:48)
[2023-09-02] MEDS: OCTREOTIDE ACETATE 1,250 MCG in NS 248.75 ML IV SCH (17:07)
[2023-09-02] MEDS ORDERED: TPN CENTRAL IV SCH ×6 (21:00)
[2023-09-02] MEDS ORDERED: SODIUM CHLORIDE IV SCH ×6 (21:00)
[2023-09-02] MEDS ORDERED: POTASSIUM CHLORIDE IV SCH ×6 (21:00)
[2023-09-02] MEDS ORDERED: [UNRECOGNIZED DRUG - OTHER] IV SCH ×6 (21:00)
[2023-09-03] VITALS (30 sets, daily range): BP systolic 111–139; PULSE 85–111; RESP 14–43; TEMP 97.2–99.6; O2SAT 88–100
[2023-09-03] MEDS: IPRATROPIUM/ALBUTEROL SULFATE 3 ML AMPUL.NEB (DUONEB) INH SCH ×5 (03:00→23:25)
[2023-09-03 05:01] LABS: BASOPHILS # (AUTO) 0.1 K/uL (0.0-0.2); BASOPHILS % (AUTO) 0.4 % (0.0-2.0); EOSINOPHILS # (AUTO) 0.1 K/uL (0.0-0.4); EOSINOPHILS % (AUTO) 0.8 % (0.0-4.0); HEMATOCRIT 22.9 % (36-54); HEMOGLOBIN 7.4 g/dL (14.0-18.0); LYMPHOCYTES # (AUTO) 1.1 K/uL (1.0-5.5); LYMPHOCYTES % (AUTO) 6.8 % (20.5-51.5); MEAN CORPUSCULAR HEMOGLOBIN 31 pg (27-31); MEAN CORPUSCULAR HGB CONC 33 % (32-36); MEAN CORPUSCULAR VOLUME 94 fL (79.0-98.0); MONOCYTES # (AUTO) 2.3 K/uL (0.0-1.0); MONOCYTES % (AUTO) 14.6 % (1.7-9.3); NEUTROPHILS # (AUTO) 12.4 K/uL (1.8-7.7); NEUTROPHILS % (AUTO) 77.4 % (40.0-70.0); PLATELET COUNT (AUTO) 61 K/uL (130-430); RED BLOOD CELL COUNT(AUTO) 2.43 MIL/uL (4.2-6.2); RED CELL DISTRIBUTION WIDTH 22.5 % (9.0-15.0); WHITE BLOOD COUNT (AUTO) 16.1 K/uL (4.8-10.8)
[2023-09-03 05:16] LABS: ERYTHROCYTE SEDIMENTATION RATE 30 MM/HR (0-15)
[2023-09-03 05:36] LABS: ALBUMIN 1.1 g/dL (3.4-4.8); CREATININE 2.53 mg/dL (0.55-1.30); PHOSPHORUS 3.2 mg/dL (2.7-4.5); POTASSIUM 3.1 mmol/L (3.5-5.1); TOTAL PROTEIN, SERUM 6.3 g/dL (6.4-8.3)
[2023-09-03] MEDS: METOCLOPRAMIDE HCL 10 MG/2 ML VIAL IVP SCH ×4 (05:36→23:59)
[2023-09-03 06:00] LABS: CALCIUM 6.9 mg/dL (8.4-11.0); TOTAL BILIRUBIN 20.3 mg/dL (0.0-1.0)
[2023-09-03] MEDS ORDERED: CALCIUM GLUCONATE 2 GM in NS 80 ML IV ONE (06:45)
[2023-09-03] MEDS: PANTOPRAZOLE SODIUM 40 MG/VIAL (PROTONIX) IVP SCH (10:08)
[2023-09-03] MEDS: LACTULOSE 20 GM/30 ML UDC RC SCH (10:12)
[2023-09-03] MEDS: FUROSEMIDE 40 MG/4 ML VIAL IVP SCH ×2 (10:25→20:25)
[2023-09-03] MEDS ORDERED: LACTULOSE 20 GM/30 ML UDC RC ONE (14:00)
[2023-09-03] MEDS: NOREPINEPHRINE BITARTRATE 16 MG in D5W 234 ML IV PRN (16:28)
[2023-09-03] MEDS: THIAMINE HCL 100 MG, MAGNESIUM SULFATE 1 GM in NS 100 ML IV SCH (17:54)
[2023-09-03] MEDS: FOLIC ACID 1 MG, MVI 10 ML in NACL 0.9% 1,000 ML IV SCH (17:55)
[2023-09-03] MEDS: LORazepam 2 MG/ML VIAL IVP PRN (18:49)
[2023-09-03] MEDS ORDERED: LACTULOSE 20 GM/30 ML UDC RC SCH (21:00)
[2023-09-03] MEDS ORDERED: SODIUM CHLORIDE IV SCH ×8 (21:00)
[2023-09-03] MEDS ORDERED: K PHOS IV SCH ×8 (21:00)
[2023-09-03] MEDS ORDERED: POTASSIUM CHLORIDE IV SCH ×8 (21:00)
[2023-09-03] MEDS ORDERED: TPN CENTRAL IV SCH ×8 (21:00)
[2023-09-03] MEDS ORDERED: [UNRECOGNIZED DRUG - OTHER] IV SCH ×8 (21:00)
[2023-09-03] MEDS: FAT EMULSIONS 250 ML IV SCH (21:32)
[2023-09-04] VITALS (29 sets, daily range): BP systolic 97–159; PULSE 91–125; RESP 9–45; TEMP 97.4–100.8; O2SAT 91–98
[2023-09-04] MEDS: IPRATROPIUM/ALBUTEROL SULFATE 3 ML AMPUL.NEB (DUONEB) INH SCH ×6 (03:00→23:38)
[2023-09-04 05:07] LABS: BASOPHILS # (AUTO) 0.1 K/uL (0.0-0.2); BASOPHILS % (AUTO) 0.4 % (0.0-2.0); EOSINOPHILS # (AUTO) 0.1 K/uL (0.0-0.4); EOSINOPHILS % (AUTO) 0.4 % (0.0-4.0); LYMPHOCYTES # (AUTO) 1.4 K/uL (1.0-5.5); LYMPHOCYTES % (AUTO) 7.8 % (20.5-51.5); MEAN CORPUSCULAR HEMOGLOBIN 33 pg (27-31); MEAN CORPUSCULAR HGB CONC 34 % (32-36); MEAN CORPUSCULAR VOLUME 96 fL (79.0-98.0); MONOCYTES # (AUTO) 2.9 K/uL (0.0-1.0); MONOCYTES % (AUTO) 16.3 % (1.7-9.3); NEUTROPHILS # (AUTO) 13.3 K/uL (1.8-7.7); NEUTROPHILS % (AUTO) 75.1 % (40.0-70.0); PLATELET COUNT (AUTO) 119 K/uL (130-430); RED CELL DISTRIBUTION WIDTH 23.8 % (9.0-15.0); WHITE BLOOD COUNT (AUTO) 17.7 K/uL (4.8-10.8)
[2023-09-04 05:43] LABS: RED BLOOD CELL COUNT(AUTO) 1.73 MIL/uL (4.2-6.2)
[2023-09-04 05:45] LABS: HEMOGLOBIN 5.6 g/dL (14.0-18.0)
[2023-09-04 05:46] LABS: HEMATOCRIT 16.6 % (36-54)
[2023-09-04 06:05] LABS: ALBUMIN 0.9 g/dL (3.4-4.8); CALCIUM 7.2 mg/dL (8.4-11.0); CREATININE 3.5 mg/dL (0.55-1.30); PHOSPHORUS 3.3 mg/dL (2.7-4.5); POTASSIUM 3.8 mmol/L (3.5-5.1); TOTAL PROTEIN, SERUM 5.5 g/dL (6.4-8.3)
[2023-09-04 06:13] LABS: TOTAL BILIRUBIN 18.9 mg/dL (0.0-1.0)
[2023-09-04] MEDS ORDERED: RIFAXIMIN 550 MG TABLET PO ONE (10:00)
[2023-09-04] MEDS: PANTOPRAZOLE SODIUM 40 MG/VIAL (PROTONIX) IVP SCH (10:22)
[2023-09-04] MEDS: FUROSEMIDE 40 MG/4 ML VIAL IVP SCH ×2 (10:23→20:24)
[2023-09-04] MEDS: LACTULOSE 20 GM/30 ML UDC PO SCH (11:02)
[2023-09-04] MEDS: METOCLOPRAMIDE HCL 10 MG/2 ML VIAL IVP SCH ×3 (12:00→23:34)
[2023-09-04] MEDS: LEVOFLOXACIN 250 MG/D5W 50 ML IV SCH (14:00)
[2023-09-04] MEDS: OCTREOTIDE ACETATE 1,250 MCG in NS 248.75 ML IV SCH (14:25)
[2023-09-04] MEDS: FOLIC ACID 1 MG, MVI 10 ML in NACL 0.9% 1,000 ML IV SCH (17:53)
[2023-09-04] MEDS: THIAMINE HCL 100 MG, MAGNESIUM SULFATE 1 GM in NS 100 ML IV SCH (17:53)
[2023-09-04] MEDS: NOREPINEPHRINE BITARTRATE 16 MG in NS 234 ML IV PRN (18:07)
[2023-09-04] MEDS: RIFAXIMIN 550 MG TABLET PO SCH (20:25)
[2023-09-04] MEDS ORDERED: TPN CENTRAL 0.0001 ML, SODIUM CHLORIDE 40 MEQ, POTASSIUM CHLORIDE 40 MEQ, K PHOS 12 MM,... IV SCH ×8 (21:00)
[2023-09-04] MEDS: FAT EMULSIONS 250 ML IV SCH (21:04)
[2023-09-05] VITALS (28 sets, daily range): BP systolic 78–188; PULSE 120–135; RESP 23–49; TEMP 98.2–98.9; O2SAT 91–96
[2023-09-05] MEDS: IPRATROPIUM/ALBUTEROL SULFATE 3 ML AMPUL.NEB (DUONEB) INH SCH ×6 (03:45→23:00)
[2023-09-05] MEDS: METOCLOPRAMIDE HCL 10 MG/2 ML VIAL IVP SCH ×4 (05:24→23:52)
[2023-09-05 05:54] LABS: BASOPHILS # (AUTO) 0.1 K/uL (0.0-0.2); BASOPHILS % (AUTO) 0.3 % (0.0-2.0); LYMPHOCYTES # (AUTO) 1.3 K/uL (1.0-5.5); LYMPHOCYTES % (AUTO) 6.5 % (20.5-51.5); MEAN CORPUSCULAR HEMOGLOBIN 32 pg (27-31); MEAN CORPUSCULAR HGB CONC 34 % (32-36); MEAN CORPUSCULAR VOLUME 94 fL (79.0-98.0); MONOCYTES # (AUTO) 3.5 K/uL (0.0-1.0); NEUTROPHILS # (AUTO) 15.8 K/uL (1.8-7.7); NEUTROPHILS % (AUTO) 76.2 % (40.0-70.0); PLATELET COUNT (AUTO) 111 K/uL (130-430); RED BLOOD CELL COUNT(AUTO) 2.02 MIL/uL (4.2-6.2); RED CELL DISTRIBUTION WIDTH 21.4 % (9.0-15.0); WHITE BLOOD COUNT (AUTO) 20.7 K/uL (4.8-10.8)
[2023-09-05 06:55] LABS: CALCIUM 7.3 mg/dL (8.4-11.0); CREATININE 4.15 mg/dL (0.55-1.30); PHOSPHORUS 3.7 mg/dL (2.7-4.5); POTASSIUM 3.9 mmol/L (3.5-5.1); TOTAL PROTEIN, SERUM 5.9 g/dL (6.4-8.3)
[2023-09-05 06:58] LABS: TOTAL BILIRUBIN 20.3 mg/dL (0.0-1.0)
[2023-09-05 08:03] LABS: HEMATOCRIT 18.9 % (36-54); HEMOGLOBIN 6.4 g/dL (14.0-18.0)
[2023-09-05] MEDS: PANTOPRAZOLE SODIUM 40 MG/VIAL (PROTONIX) IVP SCH (08:27)
[2023-09-05] MEDS: FUROSEMIDE 40 MG/4 ML VIAL IVP SCH ×2 (08:27→20:51)
[2023-09-05] MEDS: RIFAXIMIN 550 MG TABLET PO SCH ×2 (08:28→20:50)
[2023-09-05] MEDS: LACTULOSE 20 GM/30 ML UDC PO SCH (08:28)
[2023-09-05] MEDS ORDERED: HYDROcodone/ACETAMIN 5-325 MG TAB (NORCO/ VICODIN) PO PRN (10:00)
[2023-09-05] MEDS ORDERED: NALOXONE HCL 0.4 MG/ML AMP (NARCAN) IVP PRN ×2 (10:00)
[2023-09-05] MEDS ORDERED: ACETAMINOPHEN 325 MG TABLET PO PRN ×2 (10:00→10:15)
[2023-09-05] MEDS: HYDROcodone/ACETAMIN 5-325 MG TAB (NORCO/ VICODIN) PO PRN (10:58)
[2023-09-05] MEDS: OCTREOTIDE ACETATE 1,250 MCG in NS 248.75 ML IV SCH (13:03)
[2023-09-05] MEDS: FOLIC ACID 1 MG, MVI 10 ML in NACL 0.9% 1,000 ML IV SCH (17:12)
[2023-09-05] MEDS: THIAMINE HCL 100 MG, MAGNESIUM SULFATE 1 GM in NS 100 ML IV SCH (17:12)
[2023-09-05] MEDS: LORazepam 2 MG/ML VIAL IVP PRN (20:51)
[2023-09-05] MEDS: FAT EMULSIONS 250 ML IV SCH (20:52)
[2023-09-05] MEDS ORDERED: TPN CENTRAL 0.0001 ML, SODIUM CHLORIDE 40 MEQ, POTASSIUM CHLORIDE 40 MEQ, K PHOS 12 MM,... IV SCH ×8 (21:00)
[2023-09-06] VITALS (27 sets, daily range): BP systolic 87–144; PULSE 67–124; RESP 22–51; TEMP 97.2–98.8; O2SAT 94–100
[2023-09-06] MEDS ORDERED: DEXMEDETOMIDINE HCL 200 MCG/2 ML VIAL IV ONE (01:03)
[2023-09-06] MEDS: IPRATROPIUM/ALBUTEROL SULFATE 3 ML AMPUL.NEB (DUONEB) INH SCH ×7 (03:18→23:00)
[2023-09-06] MEDS: METOCLOPRAMIDE HCL 10 MG/2 ML VIAL IVP SCH ×4 (05:32→23:40)
[2023-09-06] MEDS: HYDROcodone/ACETAMIN 5-325 MG TAB (NORCO/ VICODIN) PO PRN (05:44)
[2023-09-06 07:15] LABS: ALBUMIN 0.9 g/dL (3.4-4.8); CALCIUM 7.3 mg/dL (8.4-11.0); CREATININE 5.09 mg/dL (0.55-1.30); PHOSPHORUS 5.5 mg/dL (2.7-4.5); POTASSIUM 4.6 mmol/L (3.5-5.1); TOTAL PROTEIN, SERUM 5.5 g/dL (6.4-8.3)
[2023-09-06 07:21] LABS: BASOPHILS # (AUTO) 0.1 K/uL (0.0-0.2); BASOPHILS % (AUTO) 0.4 % (0.0-2.0); LYMPHOCYTES # (AUTO) 1.5 K/uL (1.0-5.5); LYMPHOCYTES % (AUTO) 6.6 % (20.5-51.5); MEAN CORPUSCULAR HEMOGLOBIN 32 pg (27-31); MEAN CORPUSCULAR HGB CONC 34 % (32-36); MEAN CORPUSCULAR VOLUME 95 fL (79.0-98.0); MONOCYTES # (AUTO) 3.5 K/uL (0.0-1.0); MONOCYTES % (AUTO) 15.3 % (1.7-9.3); NEUTROPHILS # (AUTO) 17.7 K/uL (1.8-7.7); NEUTROPHILS % (AUTO) 77.7 % (40.0-70.0); PLATELET COUNT (AUTO) 141 K/uL (130-430); WHITE BLOOD COUNT (AUTO) 22.7 K/uL (4.8-10.8)
[2023-09-06 07:32] LABS: RED BLOOD CELL COUNT(AUTO) 1.74 MIL/uL (4.2-6.2)
[2023-09-06 07:33] LABS: HEMATOCRIT 16.5 % (36-54); HEMOGLOBIN 5.6 g/dL (14.0-18.0)
[2023-09-06 07:36] LABS: ERYTHROCYTE SEDIMENTATION RATE 12 MM/HR (0-15)
[2023-09-06 07:41] LABS: TOTAL BILIRUBIN 19.5 mg/dL (0.0-1.0)
[2023-09-06] MEDS: PANTOPRAZOLE SODIUM 40 MG/VIAL (PROTONIX) IVP SCH (09:00)
[2023-09-06] MEDS: FUROSEMIDE 40 MG/4 ML VIAL IVP SCH ×2 (09:00→20:17)
[2023-09-06] MEDS ORDERED: TPN CENTRAL IV SCH ×12 (10:30→21:00)
[2023-09-06] MEDS ORDERED: SODIUM CHLORIDE IV SCH ×12 (10:30→21:00)
[2023-09-06] MEDS ORDERED: POTASSIUM CHLORIDE IV SCH ×12 (10:30→21:00)
[2023-09-06] MEDS ORDERED: [UNRECOGNIZED DRUG - OTHER] IV SCH ×12 (10:30→21:00)
[2023-09-06] MEDS: LACTULOSE 20 GM/30 ML UDC PO SCH (11:34)
[2023-09-06] MEDS: RIFAXIMIN 550 MG TABLET PO SCH ×2 (11:35→21:00)
[2023-09-06] MEDS ORDERED: FOLIC ACID 1 MG, MVI 10 ML in NACL 0.9% 1,000 ML IV SCH (12:00)
[2023-09-06] MEDS: OCTREOTIDE ACETATE 1,250 MCG in NS 248.75 ML IV SCH (15:00)
[2023-09-06] MEDS: THIAMINE HCL 100 MG, MAGNESIUM SULFATE 1 GM in NS 100 ML IV SCH (17:00)
[2023-09-06] MEDS: LEVOFLOXACIN 250 MG/D5W 50 ML IV SCH (18:36)
[2023-09-06] MEDS: LORazepam 2 MG/ML VIAL IVP PRN (20:18)
[2023-09-06] MEDS: FAT EMULSIONS 250 ML IV SCH (20:25)
[2023-09-06] MEDS: MORPHINE 2 MG/ML INJ. SYRINGE IVP PRN (22:09)
[2023-09-07] VITALS (29 sets, daily range): BP systolic 82–135; PULSE 112–124; RESP 17–51; TEMP 97.7–98.8; O2SAT 91–100
[2023-09-07] MEDS: IPRATROPIUM/ALBUTEROL SULFATE 3 ML AMPUL.NEB (DUONEB) INH SCH ×6 (03:00→23:10)
[2023-09-07 05:05] LABS: ALBUMIN 0.9 g/dL (3.4-4.8); CALCIUM 7.1 mg/dL (8.4-11.0); CREATININE 6.05 mg/dL (0.55-1.30); PHOSPHORUS 6.5 mg/dL (2.7-4.5); POTASSIUM 5.3 mmol/L (3.5-5.1); TOTAL PROTEIN, SERUM 6.1 g/dL (6.4-8.3)
[2023-09-07] MEDS: MORPHINE 2 MG/ML INJ. SYRINGE IVP PRN ×4 (05:12→23:12)
[2023-09-07 05:19] LABS: ERYTHROCYTE SEDIMENTATION RATE 12 MM/HR (0-15)
[2023-09-07 05:26] LABS: BASOPHILS # (AUTO) 0.1 K/uL (0.0-0.2); BASOPHILS % (AUTO) 0.3 % (0.0-2.0); EOSINOPHILS # (AUTO) 0.1 K/uL (0.0-0.4); EOSINOPHILS % (AUTO) 0.4 % (0.0-4.0); LYMPHOCYTES # (AUTO) 2.5 K/uL (1.0-5.5); LYMPHOCYTES % (AUTO) 9.5 % (20.5-51.5); MEAN CORPUSCULAR HEMOGLOBIN 31 pg (27-31); MEAN CORPUSCULAR HGB CONC 33 % (32-36); MEAN CORPUSCULAR VOLUME 93 fL (79.0-98.0); MONOCYTES # (AUTO) 3.9 K/uL (0.0-1.0); MONOCYTES % (AUTO) 15.2 % (1.7-9.3); NEUTROPHILS # (AUTO) 19.3 K/uL (1.8-7.7); NEUTROPHILS % (AUTO) 74.6 % (40.0-70.0); PLATELET COUNT (AUTO) 173 K/uL (130-430); RED BLOOD CELL COUNT(AUTO) 2.04 MIL/uL (4.2-6.2); RED CELL DISTRIBUTION WIDTH 18.9 % (9.0-15.0); WHITE BLOOD COUNT (AUTO) 25.9 K/uL (4.8-10.8)
[2023-09-07] MEDS: METOCLOPRAMIDE HCL 10 MG/2 ML VIAL IVP SCH ×4 (05:45→23:12)
[2023-09-07 05:53] LABS: HEMOGLOBIN 6.3 g/dL (14.0-18.0)
[2023-09-07 05:58] LABS: TOTAL BILIRUBIN 20.8 mg/dL (0.0-1.0)
[2023-09-07] MEDS: RIFAXIMIN 550 MG TABLET PO SCH ×2 (08:19→19:53)
[2023-09-07] MEDS: PANTOPRAZOLE SODIUM 40 MG/VIAL (PROTONIX) IVP SCH (08:20)
[2023-09-07] MEDS: FUROSEMIDE 40 MG/4 ML VIAL IVP SCH ×2 (08:20→19:53)
[2023-09-07] MEDS: LACTULOSE 20 GM/30 ML UDC PO SCH (08:20)
[2023-09-07] MEDS: OCTREOTIDE ACETATE 1,250 MCG in NS 248.75 ML IV SCH (14:42)
[2023-09-07] MEDS: NOREPINEPHRINE BITARTRATE 16 MG in NS 234 ML IV PRN (14:43)
[2023-09-07] MEDS: FAT EMULSIONS 250 ML IV SCH (19:51)
[2023-09-07] MEDS ORDERED: TRACE ELEMENTS IV SCH ×5 (21:00)
[2023-09-07] MEDS ORDERED: TPN CENTRAL IV SCH ×5 (21:00)
[2023-09-07] MEDS ORDERED: SODIUM CHLORIDE IV SCH ×5 (21:00)
[2023-09-07] MEDS ORDERED: [UNRECOGNIZED DRUG - OTHER] IV SCH ×5 (21:00)
[2023-09-07] MEDS: LORazepam 2 MG/ML VIAL IVP PRN (22:33)
[2023-09-08] VITALS (28 sets, daily range): BP systolic 84–128; PULSE 110–120; RESP 13–27; TEMP 97.9–98.8; O2SAT 90–98
[2023-09-08] MEDS: IPRATROPIUM/ALBUTEROL SULFATE 3 ML AMPUL.NEB (DUONEB) INH SCH ×6 (03:38→23:20)
[2023-09-08] MEDS ORDERED: METOCLOPRAMIDE HCL 10 MG/2 ML VIAL ONE (05:22)
[2023-09-08] MEDS: METOCLOPRAMIDE HCL 10 MG/2 ML VIAL IVP SCH ×4 (05:33→23:45)
[2023-09-08 06:25] LABS: BASOPHILS % (AUTO) 0.1 % (0.0-2.0); LYMPHOCYTES % (AUTO) 7.9 % (20.5-51.5); MEAN CORPUSCULAR HEMOGLOBIN 31 pg (27-31); MEAN CORPUSCULAR HGB CONC 33 % (32-36); MEAN CORPUSCULAR VOLUME 94 fL (79.0-98.0); MONOCYTES % (AUTO) 16.1 % (1.7-9.3); NEUTROPHILS # (AUTO) 18.7 K/uL (1.8-7.7); NEUTROPHILS % (AUTO) 75.9 % (40.0-70.0); PLATELET COUNT (AUTO) 75 K/uL (130-430); RED BLOOD CELL COUNT(AUTO) 2.08 MIL/uL (4.2-6.2); RED CELL DISTRIBUTION WIDTH 18.1 % (9.0-15.0); WHITE BLOOD COUNT (AUTO) 24.6 K/uL (4.8-10.8)
[2023-09-08 07:11] LABS: ALBUMIN 0.8 g/dL (3.4-4.8); CREATININE 6.05 mg/dL (0.55-1.30); PHOSPHORUS 6.8 mg/dL (2.7-4.5); POTASSIUM 5.3 mmol/L (3.5-5.1); TOTAL PROTEIN, SERUM 5.4 g/dL (6.4-8.3)
[2023-09-08 07:42] LABS: TOTAL BILIRUBIN 20.3 mg/dL (0.0-1.0)
[2023-09-08 08:10] LABS: HEMATOCRIT 19.6 % (36-54); HEMOGLOBIN 6.5 g/dL (14.0-18.0)
[2023-09-08] MEDS: FUROSEMIDE 40 MG/4 ML VIAL IVP SCH ×2 (08:29→20:22)
[2023-09-08] MEDS: PANTOPRAZOLE SODIUM 40 MG/VIAL (PROTONIX) IVP SCH (08:29)
[2023-09-08] MEDS: RIFAXIMIN 550 MG TABLET PO SCH ×2 (09:00→20:23)
[2023-09-08] MEDS: LACTULOSE 20 GM/30 ML UDC PO SCH (09:00)
[2023-09-08] MEDS: OCTREOTIDE ACETATE 1,250 MCG in NS 248.75 ML IV SCH (15:04)
[2023-09-08] MEDS: LEVOFLOXACIN 250 MG/D5W 50 ML IV SCH (15:04)
[2023-09-08] MEDS ORDERED: DESMOPRESSIN ACETATE 4 MCG/ML AMP IV ONE (15:30)
[2023-09-08 16:36] LABS: INFLUENZA A PCR Negative (Negative); INFLUENZA B PCR Negative (Negative); NOVEL CORONAVIRUS(COVID19) NAA Negative (Negative); RSV PCR Negative (Negative)
[2023-09-08] MEDS ORDERED: DESMOPRESSIN ACETATE 0.02 MG in NS 50 ML IV ONE (17:00)
[2023-09-08] MEDS: FAT EMULSIONS 250 ML IV SCH (20:07)
[2023-09-08] MEDS: NOREPINEPHRINE BITARTRATE 16 MG in NS 234 ML IV PRN (20:21)
[2023-09-08] MEDS ORDERED: TPN CENTRAL IV SCH ×10 (21:00)
[2023-09-08] MEDS ORDERED: SODIUM CHLORIDE IV SCH ×10 (21:00)
[2023-09-08] MEDS ORDERED: TRACE ELEMENTS IV SCH ×10 (21:00)
[2023-09-08] MEDS ORDERED: [UNRECOGNIZED DRUG - OTHER] IV SCH ×5 (21:00)
[2023-09-08] MEDS ORDERED: [UNRECOGNIZED DRUG - OTHER] IV SCH ×5 (21:00)
[2023-09-09] VITALS (30 sets, daily range): BP systolic 97–138; PULSE 113–118; RESP 23–37; TEMP 97.6–98.6; O2SAT 90–96
[2023-09-09] MEDS: LORazepam 2 MG/ML VIAL IVP PRN (01:40)
[2023-09-09] MEDS: IPRATROPIUM/ALBUTEROL SULFATE 3 ML AMPUL.NEB (DUONEB) INH SCH ×6 (03:44→23:15)
[2023-09-09] MEDS ORDERED: METOCLOPRAMIDE HCL 10 MG/2 ML VIAL ONE ×2 (05:15→23:40)
[2023-09-09] MEDS: METOCLOPRAMIDE HCL 10 MG/2 ML VIAL IVP SCH ×4 (05:26→23:44)
[2023-09-09 05:52] LABS: BASOPHILS % (AUTO) 0.2 % (0.0-2.0); LYMPHOCYTES # (AUTO) 1.4 K/uL (1.0-5.5); LYMPHOCYTES % (AUTO) 6.3 % (20.5-51.5); MEAN CORPUSCULAR HEMOGLOBIN 32 pg (27-31); MEAN CORPUSCULAR HGB CONC 34 % (32-36); MEAN CORPUSCULAR VOLUME 94 fL (79.0-98.0); MONOCYTES # (AUTO) 3.5 K/uL (0.0-1.0); MONOCYTES % (AUTO) 15.5 % (1.7-9.3); NEUTROPHILS # (AUTO) 17.5 K/uL (1.8-7.7); RED CELL DISTRIBUTION WIDTH 16.6 % (9.0-15.0); WHITE BLOOD COUNT (AUTO) 22.4 K/uL (4.8-10.8)
[2023-09-09 06:45] LABS: RED BLOOD CELL COUNT(AUTO) 1.97 MIL/uL (4.2-6.2)
[2023-09-09 06:46] LABS: HEMOGLOBIN 6.4 g/dL (14.0-18.0)
[2023-09-09 06:47] LABS: HEMATOCRIT 18.5 % (36-54); PLATELET COUNT (AUTO) 39 K/uL (130-430)
[2023-09-09 07:13] LABS: INR 3.8 (0.80-1.20); PROTHROMBIN TIME 37.1 SECS (9.5-12.5)
[2023-09-09] MEDS: PANTOPRAZOLE SODIUM 40 MG/VIAL (PROTONIX) IVP SCH (08:49)
[2023-09-09] MEDS: FUROSEMIDE 40 MG/4 ML VIAL IVP SCH ×2 (08:50→20:18)
[2023-09-09] MEDS: RIFAXIMIN 550 MG TABLET PO SCH ×2 (08:51→21:00)
[2023-09-09] MEDS: LACTULOSE 20 GM/30 ML UDC PO SCH (08:51)
[2023-09-09 10:30] LABS: ALBUMIN 0.8 g/dL (3.4-4.8); CREATININE 5.47 mg/dL (0.55-1.30); POTASSIUM 4.6 mmol/L (3.5-5.1); TOTAL PROTEIN, SERUM 5.3 g/dL (6.4-8.3)
[2023-09-09 10:35] LABS: CALCIUM 6.9 mg/dL (8.4-11.0); TOTAL BILIRUBIN 19.8 mg/dL (0.0-1.0)
[2023-09-09 10:47] LABS: TOTAL IRON BIND. CAPACITY 83 ug/dL (250-450)
[2023-09-09] MEDS: MORPHINE 2 MG/ML INJ. SYRINGE IVP PRN ×2 (14:09→18:41)
[2023-09-09] MEDS: NOREPINEPHRINE BITARTRATE 16 MG in NS 234 ML IV PRN (14:15)
[2023-09-09] MEDS: OCTREOTIDE ACETATE 1,250 MCG in NS 248.75 ML IV SCH (16:14)
[2023-09-09] MEDS ORDERED: PHYTONADIONE 10 MG in NS 50 ML IV ONE (20:00)
[2023-09-09] MEDS: FAT EMULSIONS 250 ML IV SCH (20:19)
[2023-09-09] MEDS ORDERED: MVI IV SCH ×7 (21:00)
[2023-09-09] MEDS ORDERED: SODIUM CHLORIDE IV SCH ×7 (21:00)
[2023-09-09] MEDS ORDERED: [UNRECOGNIZED DRUG - OTHER] IV SCH ×7 (21:00)
[2023-09-09] MEDS ORDERED: MAGNESIUM SULFATE IV SCH ×7 (21:00)
[2023-09-09] MEDS ORDERED: TPN CENTRAL IV SCH ×7 (21:00)
[2023-09-10] VITALS (16 sets, daily range): BP systolic 51–102; PULSE 0–196; RESP 24–48; TEMP 97–98; O2SAT 0–100
[2023-09-10] MEDS: IPRATROPIUM/ALBUTEROL SULFATE 3 ML AMPUL.NEB (DUONEB) INH SCH ×2 (03:35→07:51)
[2023-09-10] MEDS: METOCLOPRAMIDE HCL 10 MG/2 ML VIAL IVP SCH (05:35)
[2023-09-10] MEDS: NOREPINEPHRINE BITARTRATE 16 MG in NS 234 ML IV PRN (05:37)
[2023-09-10 05:39] LABS: MEAN CORPUSCULAR HEMOGLOBIN 33 pg (27-31); MEAN CORPUSCULAR HGB CONC 34 % (32-36); MEAN CORPUSCULAR VOLUME 95 fL (79.0-98.0)
[2023-09-10] MEDS ORDERED: SUCCINYLCHOLINE CHLORIDE 20 MG/ML(QUELICIN) ONE (06:00)
[2023-09-10] MEDS ORDERED: ETOMIDATE 20 MG/ 10 ML VIAL (AMIDATE) ONE (06:00)
[2023-09-10] MEDS ORDERED: VASOPRESSIN 20 UNITS in NS 99 ML IV PRN (06:15)
[2023-09-10] MEDS ORDERED: NOREPINEPHRINE BITARTRATE 32 MG in NS 218 ML IV PRN (06:15)
[2023-09-10 06:16] LABS: BLOOD GAS PCO2 37.7 mmHg (32.0-45.0); BLOOD GAS PH 7.369 (7.350-7.450); BLOOD GAS PO2 135.2 mmHg (75.0-100.0)
[2023-09-10 06:17] LABS: ABG O2 SAT% ESTIMATE 98.6 % (94.0-100.0); BLOOD GAS BASE EXCESS -3.5 mmol/L (-3.0-3.0); BLOOD GAS HCO3 21.3 mmol/L (21.0-27.0)
[2023-09-10 06:26] LABS: ALBUMIN 0.6 g/dL (3.4-4.8); CREATININE 6.84 mg/dL (0.55-1.30); PHOSPHORUS 7.8 mg/dL (2.7-4.5); POTASSIUM 5.6 mmol/L (3.5-5.1); TOTAL PROTEIN, SERUM 3.8 g/dL (6.4-8.3)
[2023-09-10 06:34] LABS: CALCIUM 6.6 mg/dL (8.4-11.0)
[2023-09-10] MEDS ORDERED: FENTANYL CITRATE-0.9 % NACL/PF 100 ML IV PRN (07:00)
[2023-09-10] MEDS ORDERED: PROPOFOL DRIP 100 ML IV PRN (07:00)
[2023-09-10] MEDS: PHENYLEPHRINE HCL 100 MG in NS 240 ML IV PRN ×2 (07:27→10:00)
[2023-09-10 07:32] LABS: RED BLOOD CELL COUNT(AUTO) 1.24 MIL/uL (4.2-6.2)
[2023-09-10 07:38] LABS: HEMATOCRIT 11.8 % (36-54); HEMOGLOBIN 4.1 g/dL (14.0-18.0); PLATELET COUNT (AUTO) 41 K/uL (130-430)
[2023-09-10 08:06] LABS: FERRITIN 1154 ng/mL (30-400)
[2023-09-10 08:42] LABS: ABG O2 SAT% ESTIMATE 98.8 % (94.0-100.0); ALLEN'S TEST POSITIVE (P); BLOOD GAS BASE EXCESS -11.7 mmol/L (-3.0-3.0); BLOOD GAS HCO3 16.5 mmol/L (21.0-27.0); BLOOD GAS PCO2 45.5 mmHg (32.0-45.0); BLOOD GAS PH 7.177 (7.350-7.450); BLOOD GAS PO2 171.7 mmHg (75.0-100.0)
[2023-09-10 09:15] LABS: INR 4.6 (0.80-1.20); PROTHROMBIN TIME 44.8 SECS (9.5-12.5)
[2023-09-10] MEDS ORDERED: SODIUM BICARBONATE 8.4% JECT 50 MEQ/50 ML SYRINGE ONE (09:42)
[2023-09-10] MEDS ORDERED: SODIUM BICARBONATE 8.4% JECT 50 MEQ/50 ML SYRINGE IVP ONE (09:45)
[2023-09-10 10:28] LABS: ATYPICAL LYMPHOCYTES % 3 % (0-0); BAND % (MANUAL) 3 % (0-6); BASOPHILS % (MANUAL) 0 % (0-2); EOSINOPHILS % (MANUAL) 0 % (0-7); LYMPHOCYTES % (MANUAL) 18 % (20-46); MONOCYTES % (MANUAL) 17 % (0-11); PLATELET ESTIMATE DECREASED (ADEQUATE); POLYCHROMASIA 1+
[2023-09-10 10:29] LABS: ANISOCYTOSIS 1+
[2023-09-11 01:08] LABS: FOLATE (FOLIC ACID) 8.4 ng/mL (>3.0)
== END 2023-09-10 10:49 | DRG 720 ==
LOC: SED 03:09 → SIC 05:41
PROVIDERS: ADMIT Preventive Medicine Preventive Medicine/Occupational Environmental Medicine; ATTEND Preventive Medicine Preventive Medicine/Occupational Environmental Medicine
PROC: 02HV33Z Insertion of Infusion Device into Superior Vena Cava, Percutaneous Approach (ICD-10-PCS; 2023-08-27)
PROC: B548ZZA Ultrasonography of Superior Vena Cava, Guidance (ICD-10-PCS; 2023-08-27)
PROC: 5A1945Z Respiratory Ventilation, 24-96 Consecutive Hours (ICD-10-PCS; 2023-08-28)
PROC: 0BH17EZ Insertion of Endotracheal Airway into Trachea, Via Natural or Artificial Opening (ICD-10-PCS; 2023-08-28)
PROC: 30233K1 Transfusion of Nonautologous Frozen Plasma into Peripheral Vein, Percutaneous Approach (ICD-10-PCS; 2023-08-29)
PROC: 30233N1 Transfusion of Nonautologous Red Blood Cells into Peripheral Vein, Percutaneous Approach (ICD-10-PCS; principal; 2023-09-05)
PROC: 06L38CZ Occlusion of Esophageal Vein with Extraluminal Device, Via Natural or Artificial Opening Endoscopic (ICD-10-PCS; 2023-09-05)
DX: A41.9 Sepsis, unspecified organism (principal); J96.00 Acute respiratory failure, unspecified whether with hypoxia or hypercapnia; R65.21 Severe sepsis with septic shock; I85.11 Secondary esophageal varices with bleeding; E43 Unspecified severe protein-calorie malnutrition; D68.59 Other primary thrombophilia; D68.4 Acquired coagulation factor deficiency; E77.8 Other disorders of glycoprotein metabolism; E87.20 Acidosis, unspecified; D68.9 Coagulation defect, unspecified; D69.6 Thrombocytopenia, unspecified; E83.39 Other disorders of phosphorus metabolism; E83.41 Hypermagnesemia; E83.51 Hypocalcemia; E87.1 Hypo-osmolality and hyponatremia; E83.42 Hypomagnesemia; D50.0 Iron deficiency anemia secondary to blood loss (chronic); E83.52 Hypercalcemia; E87.5 Hyperkalemia; Y90.9 Presence of alcohol in blood, level not specified; R73.9 Hyperglycemia, unspecified; E87.6 Hypokalemia; I46.9 Cardiac arrest, cause unspecified; E66.01 Morbid (severe) obesity due to excess calories; K76.6 Portal hypertension; Z20.822 Contact with and (suspected) exposure to COVID-19; N17.9 Acute kidney failure, unspecified; F10.139 Alcohol abuse with withdrawal, unspecified; K70.31 Alcoholic cirrhosis of liver with ascites; R74.01 Elevation of levels of liver transaminase levels; E88.09 Other disorders of plasma-protein metabolism, not elsewhere classified; Z68.41 Body mass index [BMI] 40.0-44.9, adult; Z99.11 Dependence on respirator [ventilator] status; Z56.0 Unemployment, unspecified; J18.9 Pneumonia, unspecified organism
CPT/HCPCS: 0241U; 36415; 36600; 43255; 71045; 74018; 76700-TC; 76870-TC; 80048; 80053; 80074; 80076; 80202; 82105; 82140; 82607; 82728; 82746; 82803; 82962; 83540; 83550; 83605; 83690; 83735; 84100; 84478; 84484; 85007; 85018; 85025; 85027; 85384; 85610-TC; 85651-TC; 85730-TC; 86886; 86900; 86901; 86920; 87040; 87070-TC; 87081; 87205-TC; 90935; 90937; 92610-GN; 93005; 94002; 94003; 94640; 94760; 96365; 96368; 96375; 99291; 99292; C9113; G0482; J0131; J0330; J0610; J0696; J1200; J1940; J1956; J2060; J2175; J2250; J2270; J2354; J2370; J2405; J2543; J2597; J2704; J2765; J3370; J3411; J3430; J3475; J3480; J3490; J7030; J7050; J7060; J7131; P9021; P9046; P9059